=== PATIENT | female | born 2000 | race Caucasian/White ===

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

== ENCOUNTER 2022-01-03 15:11 | Outpatient (CLI) | payer OTHER, SELFPAY | END 2022-01-03 15:12 | disposition home or self-care (01) | LOC: NFLDREF 15:13 | PROVIDERS: PCP Family Medicine; Visit Provider Family Medicine | DX: Z01.419 Encounter for gynecological examination (general) (routine) without abnormal findings (principal); R53.83 Other fatigue | CPT/HCPCS: 84443 ==

== ENCOUNTER 2022-02-18 20:20 | Emergency (ER) | payer OTHER, SELFPAY ==
[2022-02-18 21:05] VITALS: BP 111/72; PULSE 74; RESP 18; TEMP 36.7; O2SAT 99; BMI 18.0
--- NOTE | 2022-02-18 21:49 | ED.CHESTPAIN ---
HPI - Chest Pain General Chief Complaint: Chest Pain Stated Complaint: L Chest Tightness, Pain in L Arm Time Seen by Provider: 02/18/22 21:05 History of Present Illness HPI narrative: This 89-year-old female comes in reporting some intermittent chest discomfort in the left upper anterior chest that began this morning. She states that there is some mild discomfort but then has some brief spikes of increased pain in her left shoulder, anterior chest, and sometimes down her left arm. He does not have any nausea, vomiting, lightheadedness, shortness of breath, or diaphoresis. She has good exercise tolerance. She does not have any cardiac risk factors. She did have an upper respiratory infection a few weeks ago but this has now completely resolved. Related Data Home Medications Medication Instructions Recorded Confirmed sctmiqcidjur-Uf-tcae-minerals 18 1 tab PO DAILY 12/22/21 02/18/22 mg-0.4 mg tablet zinc sulfate 25 mg zinc (110 mg) 25 mg PO DAILY 12/22/21 02/18/22 tablet (Orazinc) Previous Rx's Medication Instructions Recorded drospirenone 3 mg-ethinyl 1 tab PO QDAY #84 tabs 12/22/21 estradiol 0.02 mg tablet (SUSAN (28)) Allergies Allergy/AdvReac Type Severity Reaction Status Date / Time No Known Drug Allergies Allergy Verified 02/18/22 21:08 Review of Systems Status of ROS Reports: 10 or more systems reviewed and unremarkable except as noted in History and below Narrative Constitutional: No fevers, no weight gain or loss. Eyes: No discharge. No vision changes. HENT: No congestion, no sore throat, no ear pain. Cardiovascular: No palpitations. Chest discomfort as described above. Respiratory: No shortness of breath, no wheezes, no cough. Gastrointestinal: No abdominal pain, no vomiting, no diarrhea. Genitourinary: No dysuria, no hematuria. Musculoskeletal: Normal range of motion. Skin: No rashes, no pruritis. Neurological: No dizziness, weakness, sensory change, speech change. Endo/Heme/Allergies: No bruising or bleeding. No polydipsia. Pysch: no suicidality, no anxiety, no insomnia. All other systems reviewed and are negative. PFSH PFSH Family History Family/Other Breast cancer Social History Smoking Status: Never smoker Little interest or pleasure in doing things: not at all Feeling down, depressed, or hopeless: not at all Exam Narrative Exam Narrative: Constitutional: Well-developed, well-nourished, no acute distress. HEENT: Normocephalic, atraumatic. Neck: Normal range of motion. Nontender. Supple. Heart: Regular. No murmurs. Normal rate. Intact distal pulses. Lungs: Clear to auscultation. No wheezes, rhonchi, or rales. And chest: Brief Episodes of discomfort in the left upper anterior chest. Abdomen: Normal bowel sounds. Nontender. No rebound tenderness. Genitalia: Deferred. Back: No midline tenderness. Normal range of motion. Extremities: Normal range of motion. No injury. Skin: Intact. No rash. Warm. No erythema or pallor. Neurologic: No altered sensation. No weakness. Alert and oriented. Psychiatric: No suicidality. No anxiety or depression. No insomnia. Nursing notes and vitals signs are reviewed. Const Vital Signs, click to edit/add: Vital Signs - 24 hr 02/18/22 21:05 Temperature 98.0 F Pulse Rate [Right Pulse Oximeter] 74 Respiratory Rate 18 Blood Pressure [Right Upper Arm] 111/72 Pulse Oximetry 99 Oxygen Delivery Method Room Air Course Vital Signs Vital signs: Initial Vital Signs Temperature 98.0 F 02/18/22 21:05 Temperature Source Temporal Artery Scan 02/18/22 21:05 Pulse Rate 74 02/18/22 21:05 Pulse Rhythm 02/18/22 21:05 Pulse Strength 3+ Normal 02/18/22 21:05 Respiratory Rate 18 02/18/22 21:05 Blood Pressure 111/72 02/18/22 21:05 Blood Pressure Mean 85 02/18/22 21:05 Blood Pressure Position Sitting 02/18/22 21:05 Pulse Oximetry 99 02/18/22 21:05 Oxygen Delivery Method 02/18/22 21:05 Vital Signs Temperature 98.0 F 02/18/22 21:05 Pulse Rate 74 02/18/22 21:05 Respiratory Rate 18 02/18/22 21:05 Blood Pressure 111/72 02/18/22 21:05 Pulse Oximetry 99 02/18/22 21:05 Oxygen Delivery Method 02/18/22 21:05 Temperature 98.0 F 02/18/22 21:05 Pulse Rate 74 02/18/22 21:05 Respiratory Rate 18 02/18/22 21:05 Blood Pressure 111/72 02/18/22 21:05 Pulse Oximetry 99 02/18/22 21:05 Oxygen Delivery Method 02/18/22 21:05 MDM - Chest Pain MDM Narrative Medical decision making narrative: This patient comes in with chest discomfort symptoms as described above. She has no cardiac risk factors. Her EKG appears normal. She is not tripping triggers that are suspicious for a cardiopulmonary cause for her symptoms. More likely this is chest wall pain. She may have some pain emanating from her neck or back. There was no injury event related to her symptoms. I discussed further labs and imaging options with the patient which were declined in a process of shared decision making. She did receive a prescription for Toradol. ECG Data Attestation: I personally reviewed and interpreted this ECG as follows: Interpretation: Normal sinus rhythm. Rate is 98 beats per minute. There are no ST or T-wave abnormalities. Discharge Plan Discharge Clinical Impression: Acute chest wall pain Patient Disposition: Home, Self-Care Condition: Stable Additional Instructions: Use medication as needed and indicated. Follow up with MD or return if worsening. Prescriptions: No Action Orazinc 25 mg zinc (110 mg) tablet 25 mg PO DAILY zcholjducrsw-To-pauy-minerals 18-0.4 mg tablet 1 tab PO DAILY drospirenone-ethinyl estradiol [SUSAN (28)] 3-0.02 mg tablet 1 tab PO QDAY Qty: 84 3RF Follow Up/Referrals: Ramiro Small MD [Primary Care Provider] - Stand Alone Forms: PolicyBazaar Info Instructions
[2022-02-18 21:57] VITALS: BP 111/72; PULSE 74; RESP 18; TEMP 36.7
[2022-02-18 21:58] VITALS: BP 115/68; PULSE 80; RESP 18; TEMP 36.4; O2SAT 99
== END 2022-02-18 22:00 | disposition home or self-care (01) ==
PROVIDERS: Emergency Provider Emergency Medicine Emergency Medical Services; PCP Family Medicine
DX: R07.89 Other chest pain (principal)
CPT/HCPCS: 93005; 99283; 99284